=== PATIENT | male | born 1980 | race Caucasian/White ===

== ENCOUNTER 2016-12-15 11:04 | Emergency (ER) | payer OTHER ==
[2016-12-15 11:45] VITALS: BP 160/82
--- NOTE | 2016-12-15 11:49 | UC ---
Skin Complaint HPI - HPI Summary HPI Summary: patient had left sided trunk pain for the past 5 days, 2 days ago developed a erythemic rash along the T& dermatome, no blisters at this time - History of Current Complaint Chief Complaint: UCRash Time Seen by Provider: 12/15/16 11:36 Stated Complaint: RASH ON LEFT SIDE/PAIN Hx Obtained From: Patient Onset/Duration: Sudden Onset, Lasting Days Skin Exposure Onset/Duration: Days Ago Onset Severity: Mild Current Severity: Moderate Location: Discrete Character: Pruritus, Pain, Redness, Raised Aggravating: Clothing, Humidity Alleviating: Cold Associated Signs & Symptoms: Positive: Rash, Tenderness - Allergy/Home Medications Allergies/Adverse Reactions: Allergies Allergy/AdvReac Type Severity Reaction Status Date / Time No Known Allergies Allergy Verified 12/15/16 11:33 Home Medications: Home Medications Hydrocortisone 1% CREAM* [Hytone Cream 1%*] 1 applic TOPICAL ONCE PRN 12/15/16 [ History Confirmed 12/15/16] Review of Systems Constitutional: Negative Skin: Rash Eyes: Negative ENT: Negative Respiratory: Negative Cardiovascular: Negative Gastrointestinal: Negative Genitourinary: Negative Motor: Negative Neurovascular: Negative Musculoskeletal: Negative Neurological: Negative Psychological: Negative All Other Systems Reviewed And Are Negative: Yes PMH/Surg Hx/FS Hx/Imm Hx Previously Healthy: Yes - Surgical History Surgical History: Yes Surgery Procedure, Year, and Place: LEFT HIP. LEFT JAW SX - Family History Known Family History: Positive: Hypertension Negative: Cardiac Disease - Social History Alcohol Use: Occasionally Substance Use Type: None Smoking Status (MU): Heavy Every Day Tobacco Smoker Type: Cigarettes Amount Used/How Often: 2 1/2 PPD Length of Time of Smoking/Using Tobacco: 20 YRS Have You Smoked in the Last Year: Yes - Immunization History Most Recent Tetanus Shot: 3-4 YRS AGO Physical Exam Triage Information Reviewed: Yes Appearance: Well-Appearing, Well-Nourished, Pain Distress Vital Signs: Initial Vital Signs Temp 100.3 F 12/15/16 11:16 Pulse 83 12/15/16 11:16 Resp 18 12/15/16 11:16 BP 160/82 12/15/16 11:16 Vital Signs Reviewed: Yes Eye Exam: Normal Eyes: Positive: Conjunctiva Clear ENT Exam: Normal ENT: Positive: Normal ENT inspection, Hearing grossly normal, Pharynx normal, TMs normal Dental Exam: Normal Neck exam: Normal Neck: Positive: Supple, Nontender, No Lymphadenopathy Respiratory Exam: Normal Respiratory: Positive: Chest non-tender, Lungs clear, Normal breath sounds Cardiovascular Exam: Normal Cardiovascular: Positive: RRR, No Murmur, Pulses Normal Abdominal Exam: Normal Abdomen Description: Positive: Nontender, No Organomegaly, Soft Bowel Sounds: Positive: Present Musculoskeletal Exam: Normal Musculoskeletal: Positive: Strength Intact, ROM Intact, No Edema Neurological Exam: Normal Neurological: Positive: Alert, Muscle Tone Normal Psychological Exam: Normal Skin: Positive: rashes - red raised erythemic rash along the left T7 dermatome, many red lesions, no blisters at this time Course/Dx - Course Course Of Treatment: hx obtained, exam performed, medications prescribed. educated on shingles - Differential Diagnoses - Skin Complaint Differential Diagnoses: Abscess, Cellulitis, Contact Dermatitis, Scabies, Urticaria, Varicella Zoster - Diagnoses Provider Diagnoses: shingles. pain Discharge - Discharge Plan Condition: Stable Disposition: HOME Prescriptions: Gabapentin CAP(*) [Neurontin 100 mg CAP(*)] 200 mg PO TID #60 cap ValACYclovir (*) [Valtrex 1 GM(*)] 1 gm PO TID #21 tab Patient Education Materials: Shingles (ED) Additional Instructions: Take the medication as provided. Cool to the area if it becomes extremely irritating. If blisters do develope, keep them covered they are contagious when there is exposed blistering. follow up with any worsening symptoms
== END 2016-12-15 12:03 | disposition home or self-care (01) ==
LOC: UCCORT 11:04
DX: B02.9 Zoster without complications (principal); F17.210 Nicotine dependence, cigarettes, uncomplicated
CPT/HCPCS: 99212; G0463

== ENCOUNTER 2017-01-12 12:11 | Emergency (ER) | payer OTHER ==
[2017-01-12 12:40] VITALS: BP 142/76
--- NOTE | 2017-01-12 13:39 | UC ---
Skin Complaint HPI - HPI Summary HPI Summary: diffuse rash with main patches on the isma wrists. He has had this before and this matches prior episodes. 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 does not have similar symptoms. - History of Current Complaint Chief Complaint: UCSkin Time Seen by Provider: 01/12/17 13:18 Stated Complaint: SKIN COMPLAINT Hx Obtained From: Patient Onset/Duration: Gradual Onset, Lasting Days Skin Exposure Onset/Duration: Days Ago Timing: Constant Onset Severity: Mild Current Severity: Moderate Location: Diffuse, Ear (Right), Hand (Right), Hand (Left) Aggravating: Touch Associated Signs & Symptoms: Positive: Rash. Negative: Nausea, Vomiting, Numbness, Thirst, Diaphoresis, Weakness, Pallor, Shivering, Difficulty Breathing , Fever, Chills, Cough, Wheezing, Hoarseness, Throat Tightening, Lightheadedness , Red Streaks, Joint Swelling - Allergy/Home Medications Allergies/Adverse Reactions: Allergies Allergy/AdvReac Type Severity Reaction Status Date / Time No Known Allergies Allergy Verified 01/12/17 12:40 Review of Systems All Other Systems Reviewed And Are Negative: Yes PMH/Surg Hx/FS Hx/Imm Hx Previously Healthy: Yes Endocrine History Of: Denies: Diabetes - Surgical History Surgical History: Yes Surgery Procedure, Year, and Place: LEFT HIP. LEFT JAW SX - Family History Known Family History: Positive: Hypertension Negative: Cardiac Disease - Social History Alcohol Use: Occasionally Substance Use Type: None Smoking Status (MU): Heavy Every Day Tobacco Smoker Type: Cigarettes Amount Used/How Often: 2 1/2 PPD Length of Time of Smoking/Using Tobacco: 20 YRS Have You Smoked in the Last Year: Yes - Immunization History Most Recent Tetanus Shot: 3-4 YRS AGO Physical Exam Triage Information Reviewed: Yes Appearance: Well-Appearing, No Pain Distress, Well-Nourished Vital Signs: Initial Vital Signs Temp 98.8 F 01/12/17 12:35 Pulse 83 01/12/17 12:35 Resp 14 01/12/17 12:35 BP 142/76 01/12/17 12:35 Pulse Ox 100 01/12/17 12:35 Vital Signs Reviewed: Yes Eye Exam: Normal Eyes: Positive: Conjunctiva Clear. Negative: Conjunctiva Inflamed ENT Exam: Normal ENT: Negative: Pharyngeal erythema, Nasal congestion Neck exam: Normal Neck: Positive: Supple, Nontender, No Lymphadenopathy, Nuchal Rigidity Respiratory Exam: Normal Respiratory: Positive: Chest non-tender, Lungs clear, Normal breath sounds, No respiratory distress, No accessory muscle use. Negative: Respiratory distress, Decreased breath sounds, Accessory muscle use, Crackles, Rhonchi, Stridor Cardiovascular: Positive: RRR, No Murmur, Pulses Normal, Brisk Capillary Refill Abdominal Exam: Normal Abdomen Description: Positive: Nontender, No Organomegaly, Soft Musculoskeletal Exam: Normal Musculoskeletal: Positive: Strength Intact, ROM Intact, No Edema Neurological Exam: Normal Neurological: Positive: Alert, Muscle Tone Normal. Negative: Fatigued, Lethargic, Unresponsive Psychological Exam: Normal Skin: Positive: rashes - There is a small patch of macular papular rash of the left upper eyelid, right pinna, right lower abd and isma wrists. NO induration or swelling. Course/Dx - Differential Diagnoses - Skin Complaint Differential Diagnoses: Abscess, Angioedema, Cellulitis, Contact Dermatitis, Drug Rash, Drug Intoxication, Eczema, Foreign Body, Frostbite, Lymphadenitis, Lymphangitis, MRSA, Poison Denise, Poison [place], Scabies, [place], Systemic Illness, Tick Born Illness - Diagnoses Provider Diagnoses: contact dermatitis. Steroid ointment and atarax for itching. Discharge - Discharge Plan Condition: Good Disposition: HOME Prescriptions: Triamcinolone 0.5% OINT * 1 applic TOPICAL BID #30 tube hydrOXYzine HCL TAB* [Atarax TAB 50 MG *] 25 mg PO TID PRN #30 tab PRN Reason: Itching Patient Education Materials: Poison Denise (ED) Referrals: ANDRZEJ Mccrary [Primary Care Provider] - 7 Days
== END 2017-01-12 13:43 | disposition home or self-care (01) ==
LOC: UCCORT 12:11
DX: L25.9 Unspecified contact dermatitis, unspecified cause (principal); F17.210 Nicotine dependence, cigarettes, uncomplicated
CPT/HCPCS: 99212; G0463

== ENCOUNTER 2018-04-13 15:57 | Emergency (ER) | payer OTHER ==
[2018-04-13 16:27] VITALS: BP 148/90
--- NOTE | 2018-04-13 16:44 | UC ---
Throat Pain/Nasal Mario HPI - HPI Summary HPI Summary: mouth sore and red , sore throat and nasal congestion worsening over the past 3 days - History of Current Complaint Chief Complaint: UCGeneralIllness Stated Complaint: SORE/SWOLLEN THROAT Time Seen by Provider: 04/13/18 16:20 Hx Obtained From: Patient Onset/Duration: Sudden Onset, Lasting Days - 3 Pain Intensity: 6 Pain Scale Used: 0-10 Numeric Cough: None Associated Signs & Symptoms: Positive: Nasal Discharge - Allergies/Home Medications Allergies/Adverse Reactions: Allergies Allergy/AdvReac Type Severity Reaction Status Date / Time No Known Allergies Allergy Verified 04/13/18 16:20 Home Medications: Home Medications Ibuprofen TAB* [Advil TAB*] 600 mg PO Q6H PRN 04/13/18 [History Confirmed ] PMH/Surg Hx/FS Hx/Imm Hx Previously Healthy: Yes - Surgical History Surgical History: Yes Surgery Procedure, Year, and Place: LEFT HIP. LEFT JAW SX - Family History Known Family History: Positive: Hypertension Negative: Cardiac Disease - Social History Occupation: Employed Full-time Lives: With Family Alcohol Use: Occasionally Substance Use Type: None Smoking Status (MU): Heavy Every Day Tobacco Smoker Type: Cigarettes Amount Used/How Often: 2 PPD Length of Time of Smoking/Using Tobacco: 20 YRS Have You Smoked in the Last Year: Yes Cessation Counseling: Counseled 3+Min - 10 Min - Immunization History Most Recent Tetanus Shot: 3-4 YRS AGO Review of Systems Constitutional: Negative Skin: Negative Eyes: Negative ENT: Sore Throat, Sinus Congestion, Other - mouth pain Respiratory: Negative Cardiovascular: Negative Gastrointestinal: Negative Genitourinary: Negative Motor: Negative Neurovascular: Negative Musculoskeletal: Negative Neurological: Negative Psychological: Negative Is Patient Immunocompromised?: No All Other Systems Reviewed And Are Negative: Yes Physical Exam Triage Information Reviewed: Yes Appearance: Well-Appearing, No Pain Distress, Well-Nourished Vital Signs: Initial Vital Signs Temp 98.6 F 04/13/18 16:22 Pulse 81 04/13/18 16:22 Resp 22 04/13/18 16:22 BP 148/90 04/13/18 16:22 Pulse Ox 98 04/13/18 16:22 Vital Signs Reviewed: Yes Eye Exam: Normal Eyes: Positive: Conjunctiva Clear ENT Exam: Normal ENT: Positive: Normal ENT inspection, Hearing grossly normal, Pharyngeal erythema, Nasal congestion, Nasal drainage, TMs normal, Uvula midline. Negative : Trismus, Muffled voice, Hoarse voice, Dental tenderness, Sinus tenderness Dental Exam: Other - upper dentures Dental: Positive: Gross Decay/Caries @ - lower Neck exam: Normal Neck: Positive: Supple, Nontender Respiratory Exam: Normal Respiratory: Positive: Chest non-tender, Lungs clear, Normal breath sounds, No respiratory distress Cardiovascular Exam: Normal Cardiovascular: Positive: RRR, No Murmur, Pulses Normal, Brisk Capillary Refill Musculoskeletal Exam: Normal Musculoskeletal: Positive: Strength Intact, ROM Intact, No Edema Neurological Exam: Normal Neurological: Positive: Alert, Muscle Tone Normal Psychological Exam: Normal Skin Exam: Normal Diagnostics - Laboratory Diagnostic Studies Completed/Ordered: RST (-) Throat Pain/Nasal Course/Dx - Course Assessment/Plan: nystatin, flonase, throat culture follow with pcp - Differential Dx/Diagnosis Provider Diagnoses: nicotine dependant, elevated blood pressure without diagnosis of hypertension, thrush, post nasal drip Discharge - Sign-Out/Discharge Documenting (check all that apply): Discharge/Admit/Transfer - Discharge Plan Condition: Stable Disposition: HOME Prescriptions: Fluticasone NASAL SPRAY 50MCG* [Flonase NASAL SPRAY 50MCG*] 2 spray BOTH NARES DAILY #1 btl Nystatin SUSPENSION ORAL SYR* 500,000 units SWISH SWAL QID #200 ml Patient Education Materials: How to Stop Smoking (ED), Oral Candidiasis (ED), Hypertension (ED), Postnasal Drip (DC) Referrals: ANDRZEJ Mccrary [Primary Care Provider] - 1 Week - Billing Disposition and Condition Condition: STABLE Disposition: Home
== END 2018-04-13 16:59 | disposition home or self-care (01) ==
LOC: UCCORT 15:57
DX: B37.0 Candidal stomatitis (principal); R09.82 Postnasal drip; F17.210 Nicotine dependence, cigarettes, uncomplicated; R03.0 Elevated blood-pressure reading, without diagnosis of hypertension
CPT/HCPCS: 87070; 87651; 99212; G0463